=== PATIENT | male | born 1975 ===

== ENCOUNTER 2018-08-06 18:53 | Emergency (ER) | payer OTHER ==
[~2018-08-06] VITALS: Ht 170.2 cm; Wt 75.0 kg
[2018-08-06] MEDS ORDERED: MECLIZINE HCL 25 MG TABLET PO ONE (19:30)
[2018-08-06 19:38] LABS: GLUCOSE,POINT OF CARE 86 MG/DL (70-110)
[2018-08-06 19:38] LABS: BASOPHILS % (AUTO) 0.7 % (0.0-2.0); HEMATOCRIT 45.4 % (41-53); HEMOGLOBIN 16.4 g/dL (13.5-17.5); LYMPHOCYTES # (AUTO) 2.4 K/uL (1.0-4.8); MEAN CORPUSCULAR HEMOGLOBIN 33.6 pg (26.0-34.0); MEAN CORPUSCULAR HGB CONC 36.1 G/dL (31.0-37.0); MEAN CORPUSCULAR VOLUME 93 fL (80-100); MONOCYTES # (AUTO) 0.7 K/uL (0.1-1.0); MONOCYTES % (AUTO) 8.1 % (2.0-9.0); NEUTROPHILS # (AUTO) 4.8 K/uL (1.8-7.7); NEUTROPHILS % (AUTO) 55.2 % (40.0-70.0); PLATELET COUNT (AUTO) 329 K/uL (150-450); RED BLOOD CELL COUNT(AUTO) 4.87 MIL/uL (4.50-5.90); RED CELL DISTRIBUTION WIDTH 12.6 % (11.5-14.5)
[2018-08-06 19:51] LABS: ANION GAP 10 mmol/L (8-16); CALCIUM, TOTAL 8.7 mg/dL (8.8-10.5); CARBON DIOXIDE 23 mmol/L (22-29); CHLORIDE 104 mmol/L (98-107); CREATININE 0.64 mg/dL (0.60-1.30); GLOMERULAR FILTR. RATE CALC > 60 mL/min (>60); GLUCOSE,RANDOM 87 mg/dL (70-110); POTASSIUM 3.4 mmol/L (3.5-5.1); SODIUM SERUM 137 mmol/L (136-145); UREA NITROGEN, BLOOD 11 mg/dL (7-18)
[2018-08-06 19:58] LABS: ALANINE AMINOTRANSFERASE 58 U/L (12-78); ALBUMIN 3.7 g/dL (3.4-5.0); ALKALINE PHOSPHATASE 101 U/L (46-116); ASPARTATE AMINOTRANSFERASE 26 U/L (15-37); BILIRUBIN,TOTAL 0.5 mg/dL (0.1-1.0); TOTAL PROTEIN, SERUM 7.8 g/dL (6.4-8.2)
[2018-08-06 20:41] VITALS: BP 129/82
== END 2018-08-06 20:44 | disposition home or self-care (01) ==
LOC: EMS 18:54
DX: R42 Dizziness and giddiness (principal); R11.0 Nausea
CPT/HCPCS: 82948; 93005